=== PATIENT | female | born 1955 | race Caucasian/White ===

== ENCOUNTER 2019-03-14 22:27 | Emergency (ER) | payer BC, MEDICARE ==
[2019-03-14] MEDS ORDERED: Ondansetron 4 MG Tab.DIS PO ONE (22:44)
[2019-03-14] MEDS ORDERED: Iopamidol 755 Mg/ML 100 ML Bottle IVPUSH ONE (23:06)
[2019-03-14] MEDS ORDERED: fentaNYL 100 MCG/2 ML SDV IVPUSH PRN (23:08)
[2019-03-14 23:12] LABS: CHLORIDE,CL 101 mEq/L (98-106); SODIUM,NA 140 mEq/L (136-145)
[2019-03-15] MEDS ORDERED: Lactated Ringers 1,000 ML IV SCH (00:17)
--- NOTE | 2019-03-15 00:19 | EDM.PDOC ---
ED HPI GENERAL MEDICAL PROBLEM - General Chief Complaint: Abdominal Pain Stated Complaint: abdominal pain Time Seen by Provider: 03/14/19 22:55 Source of Information: Reports: Patient History Limitations: Reports: No Limitations - History of Present Illness INITIAL COMMENTS - FREE TEXT/NARRATIVE: Patient presents to ER with complaints of abdominal pain. States had pain off and on yesterday but has become much more intense over the last 3 hours. States pain very intense, constant, "feels like labor pains". Questions if related to "eating blueberries". Has nausea with emesis while here in ER. No fevers. Had a BM prior to arrival in the ER, normal, no blood noted. Past surgical history includes cholecystectomy. Previous colonoscopies have been normal. Rates pain at a 10/10. Onset: Gradual Duration: Hour(s):, Constant, Getting Worse Location: Reports: Abdomen Quality: Reports: Sharp Severity: Severe Improves with: Reports: None Associated Symptoms: Reports: Nausea/Vomiting. Denies: Confusion, Chest Pain, Cough, Fever/Chills, Loss of Appetite, Shortness of Breath, Syncope, Weakness Middle Abdominal Pain Score (Numeric/FACES): 10 - Related Data Allergies Allergy/AdvReac Type Severity Reaction Status Date / Time ciprofloxacin AdvReac Fever Verified 03/14/19 22:30 Home Meds: Home Meds Digoxin 1.5 tab PO DAILY 04/19/16 [History] Norethindrone AC-Eth Estradiol [Jinteli 1 MG-5 MCG] 1 tab PO DAILY 04/19/16 [ History] Quinapril [Accupril] 15 mg PO DAILY 04/19/16 [History] atorvaSTATin Calcium [Atorvastatin Calcium] 10 mg PO DAILY 04/19/16 [History] Aspirin 1 tab PO DAILY 03/14/19 [History] Cholecalciferol (Vitamin D3) [Vitamin D3] 2,000 unit PO DAILY 03/14/19 [History] Cranberry 500 mg PO DAILY 03/14/19 [History] Insulin Glarg,Human.Rec.Analog [Lantus Solostar] 30 units SQ BID 03/14/19 [ History] Liraglutide [Victoza] 1.8 mg SQ DAILY 03/14/19 [History] Magnesium Oxide [Magnesium] 500 mg PO DAILY 03/14/19 [History] Multivitamin [Multivitamins] 1 cap PO DAILY 03/14/19 [History] Past Medical History Cardiovascular History: Reports: Afib, High Cholesterol, Hypertension Other Cardiovascular History: Atrial Flutter Gastrointestinal History: Reports: GERD Endocrine/Metabolic History: Reports: Diabetes, Type II - Past Surgical History GI Surgical History: Reports: Cholecystectomy Female Surgical History: Reports: Section Social & Family History - Family History Family Medical History: Noncontributory - Tobacco Use Smoking Status *Q: Former Smoker Used Tobacco, but Quit: Yes Month/Year Tobacco Last Used: October 2015 - Caffeine Use Caffeine Use: Reports: Coffee - Recreational Drug Use Recreational Drug Use: No ED ROS GENERAL - Review of Systems Review Of Systems: See Below Constitutional: Denies: Fever, Chills, Malaise, Weakness, Decreased Appetite HEENT: Reports: No Symptoms Respiratory: Denies: Shortness of Breath, Cough Cardiovascular: Denies: Chest Pain, Edema, Lightheadedness Endocrine: Denies: Fatigue GI/Abdominal: Reports: Abdominal Pain, Distension, Nausea, Vomiting. Denies: Hematochezia, Melena : Reports: No Symptoms Musculoskeletal: Reports: No Symptoms Skin: Reports: No Symptoms Neurological: Reports: No Symptoms Psychiatric: Reports: No Symptoms ED EXAM, GI/ABD - Physical Exam Exam: See Below Exam Limited By: No Limitations General Appearance: Alert, WD/WN, Mild Distress Ears: Normal External Exam, Normal TMs Nose: Normal Inspection, Normal Mucosa, No Blood Throat/Mouth: Normal Inspection, Normal Oropharynx Head: Normocephalic Neck: Normal Inspection, Supple, Non-Tender Respiratory/Chest: No Respiratory Distress, Lungs Clear, Normal Breath Sounds Cardiovascular: Regular Rate, Rhythm, No Edema GI/Abdominal Exam: Distended, Tender, Abnormal Bowel Sounds Extremities: Normal Inspection, No Pedal Edema Neurological: Alert, Oriented Skin Exam: Warm, Dry Course - Vital Signs Last Recorded V/S: Last Vital Signs Temp 97.8 F 03/14/19 22:28 Pulse 93 03/14/19 22:28 Resp 18 03/14/19 22:28 BP 184/80 H 03/14/19 22:28 Pulse Ox 97 03/14/19 22:28 - Orders/Labs/Meds Orders: Active Orders 24 hr Category Date Time Status Abdomen 2V AP Flat Upright [CR] Stat Exams 03/14/19 22:41 Taken Abdomen Pelvis w Cont [CT] Stat Exams 03/14/19 23:07 Taken INR,PT,PROTHROMBIN TIME [COAG] Stat Lab 03/15/19 00:09 Ordered UA W/MICROSCOPIC [URIN] Stat Lab 03/14/19 23:32 Ordered fentaNYL [Sublimaze] Med 03/14/19 23:08 Active 25 - 50 mcg IVPUSH Q2H PRN Medication Orders Fentanyl (Sublimaze) 25 - 50 mcg IVPUSH Q2H PRN PRN Reason: Pain Last Admin: 03/14/19 23:13 Dose: 50 mcg Labs: Laboratory Tests 03/14/19 03/14/19 Range/Units 22:45 22:45 WBC 17.3 H (5.0-10.0) 10^3/uL RBC 4.77 (4.00-5.50) 10^6/uL Hgb 15.0 (12.0-16.0) g/dL Hct 44.4 (37.0-47.0) % MCV 93.1 (82.0-94.0) fL MCH 31.4 (27.0-32.0) pg MCHC 33.8 (33.0-38.0) g/dL RDW Coeff of Satish 13.2 (11.0-15.0) % Plt Count 313 (150-400) 10^3/uL Neut % (Auto) 55.7 (35-85) % Lymph % (Auto) 36.5 (10-55) % Grainger % (Auto) 6.1 (0-16) % Eos % (Auto) 1.4 (0-5) % Baso % (Auto) 0.3 (0-3) % Neut # (Auto) 9.66 H (1.80-7.00) 10^3/uL Lymph # (Auto) 6.32 H (1.00-4.80) 10^3/uL Grainger # (Auto) 1.06 H (0.00-0.80) 10^3/uL Eos # (Auto) 0.24 (0.00-0.45) 10^3/uL Baso # (Auto) 0.05 10^3/uL Sodium 140 (136-145) mEq/L Potassium 3.6 (3.5-5.0) mEq/L Chloride 101 (98-106) mEq/L Carbon Dioxide 26 (21-32) mmol/L BUN 15 (7-18) mg/dL Creatinine 0.8 (0.6-1.0) mg/dL Est Cr Clr Drug Dosing 60.54 mL/min Estimated GFR (MDRD) > 60 (>=60) mL/min Glucose 154 H (75-99) mg/dL Calcium 10.0 (8.4-10.1) mg/dL Total Bilirubin 0.6 (0.0-1.0) mg/dL AST 28 (15-37) U/L ALT 37 (12-78) U/L Alkaline Phosphatase 42 L (46-116) U/L C-Reactive Protein 0.6 (0.2-0.8) mg/dL Total Protein 8.7 H (6.4-8.2) g/dL Albumin 4.2 (3.4-5.0) g/dL Amylase 70 (25-115) U/L Meds: Medications Generic Name Dose Route Start Last Admin Trade Name Freq PRN Reason Stop Dose Admin Fentanyl 25 - 50 mcg 03/14/19 23:08 03/14/19 23:13 Sublimaze IVPUSH 50 mcg Q2H PRN Administration Pain Discontinued Medications Generic Name Dose Route Start Last Admin Trade Name Freq PRN Reason Stop Dose Admin Iopamidol 100 ml 03/14/19 23:06 03/14/19 23:19 Isovue-370 (76%) IVPUSH 03/14/19 23:07 100 ml ONETIME ONE Administration Ondansetron HCl 4 mg 03/14/19 22:44 03/14/19 22:57 Zofran Odt PO 03/14/19 22:45 4 mg ONETIME ONE Administration - Re-Assessments/Exams Free Text/Narrative Re-Assessment/Exam: 03/15/19 Labs noted, WBC 17. Electrolytes, creatinine negative. Flat and upright shows significant air fluid levels. Proceed with CT scan of abdomen 9054- Report received from radiology, noted cecal volvulus. Contacted Dr. Dhillon at [facility] in [place]. Agreed patient needed surgical consultation/ intervention. Patient informed. Risks and benefits discussed with patient. Risks of transfer include worsening pain/condition, vehicle crash and possible . Benefits of transfer appropriate surgical intervention at higher level of care. Risks of non transfer include lac of surgical coverage/intervention, worsening of condition. Benefits include care closer to home. Patient and agree with transfer. Departure - Departure Time of Disposition: 00:19 Disposition: DC/Tfer to Acute Hospital 02 Condition: Fair Clinical Impression: Volvulus of colon - Discharge Information *PRESCRIPTION DRUG MONITORING PROGRAM REVIEWED*: No *COPY OF PRESCRIPTION DRUG MONITORING REPORT IN PATIENT SO: No Referrals: PCP,None [Primary Care Provider] - Forms: ED Department Discharge Additional Instructions: Transfer to [facility] to Dr. Dhillon. Remain NPO. - My Orders Last 24 Hours: My Active Orders 03/14/19 22:41 Abdomen 2V AP Flat Upright [CR] Stat 03/14/19 23:07 Abdomen Pelvis w Cont [CT] Stat 03/14/19 23:08 fentaNYL [Sublimaze] 25 - 50 mcg IVPUSH Q2H PRN 03/14/19 23:32 UA W/MICROSCOPIC [URIN] Stat 03/15/19 00:09 INR,PT,PROTHROMBIN TIME [COAG] Stat - Assessment/Plan Last 24 Hours: My Active Orders 03/14/19 22:41 Abdomen 2V AP Flat Upright [CR] Stat 03/14/19 23:07 Abdomen Pelvis w Cont [CT] Stat 03/14/19 23:08 fentaNYL [Sublimaze] 25 - 50 mcg IVPUSH Q2H PRN 03/14/19 23:32 UA W/MICROSCOPIC [URIN] Stat 03/15/19 00:09 INR,PT,PROTHROMBIN TIME [COAG] Stat
[2019-03-15] MEDS ORDERED: fentaNYL 100 MCG/2 ML SDV IV ONE (00:21)
[2019-03-15 00:41] VITALS: BP 169/73
== END 2019-03-15 00:56 ==
LOC: CC.ED 22:27
DX: K56.2 Volvulus (principal); I10 Essential (primary) hypertension; I48.91 Unspecified atrial fibrillation; E78.00 Pure hypercholesterolemia, unspecified; K21.9 Gastro-esophageal reflux disease without esophagitis; E11.9 Type 2 diabetes mellitus without complications; Z87.891 Personal history of nicotine dependence; Z79.899 Other long term (current) drug therapy; Z88.1 Allergy status to other antibiotic agents
CPT/HCPCS: 36415; 74019; 74177; 80053; 81001; 82150; 85025; 85610; 86140; 96365; 96375; 96376; 99285-25; A9270-GY; J3010; J7120; Q9967

== ENCOUNTER 2022-06-13 07:35 | Emergency (ER) | payer MEDICARE, BC ==
[2022-06-13 07:50] VITALS: BP 169/73; PULSE 73
[2022-06-13 08:29] LABS: PTT,PARTIAL THROMBOPLSTIN TIME 24.1 SEC (23.2-32.3)
[2022-06-13] MEDS ORDERED: Sodium Chloride 0.9% 10 ML Syringe FLUSH PRN (09:19)
[2022-06-13] MEDS: Sodium Chloride 0.9% 1,000 ML IV ONE (10:07)
[2022-06-13] MEDS: Iopamidol 755 Mg/ML 100 ML Bottle IVPUSH ONE (10:11)
[2022-06-13] MEDS: Lidocaine 5% 700 MG Patch TRDERM ONE (14:15)
== END 2022-06-13 14:19 | disposition home or self-care (01) ==
LOC: CC.ED 07:35
DX: R10.9 Unspecified abdominal pain (principal); I10 Essential (primary) hypertension; E11.9 Type 2 diabetes mellitus without complications; Z88.1 Allergy status to other antibiotic agents; Z79.899 Other long term (current) drug therapy; Z79.4 Long term (current) use of insulin; Z90.49 Acquired absence of other specified parts of digestive tract
CPT/HCPCS: 36415; 74177; 80053; 81001; 83735; 85025; 85610; 85730; 96360; 96361; 99284; 99284-25; A9270-GY; J7030; Q9967

== ENCOUNTER 2023-01-28 20:17 | Emergency (ER) | payer MEDICARE, BC ==
[2023-01-28] MEDS ORDERED: HYDROmorphone 1 MG/ML Syringe IVPUSH ONE (20:33)
[2023-01-28] MEDS ORDERED: Ondansetron 4 MG/2 ML SDV IVPUSH ONE (21:09)
[2023-01-28] MEDS ORDERED: VANCOmycin 1 GM/200 ML 1 GM in Premix Bag 1 BAG IV ONE (22:24)
[2023-01-28] MEDS ORDERED: Iopamidol 755 Mg/ML 100 ML Bottle IVPUSH ONE (22:58)
[2023-01-29] MEDS ORDERED: HYDROmorphone 1 MG/ML Syringe IVPUSH ONE ×4 (00:01→07:44)
[2023-01-29] MEDS ORDERED: Sodium Chloride 0.9% 1,000 ML IV SCH (00:15)
[2023-01-29] MEDS ORDERED: Piperacillin/Tazobactam 3.375 GM in Sodium Chloride 0.9% 100 ML IV ONE (02:07)
[2023-01-29 06:21] VITALS: BP 144/62; PULSE 72
== END 2023-01-29 08:25 ==
LOC: CC.ED 20:17
DX: J90 Pleural effusion, not elsewhere classified (principal); R10.11 Right upper quadrant pain; C22.0 Liver cell carcinoma; E78.00 Pure hypercholesterolemia, unspecified; I12.9 Hypertensive chronic kidney disease with stage 1 through stage 4 chronic kidney disease, or unspecified chronic kidney disease; N18.4 Chronic kidney disease, stage 4 (severe); Z88.0 Allergy status to penicillin; Z88.1 Allergy status to other antibiotic agents; Z79.899 Other long term (current) drug therapy; Z79.4 Long term (current) use of insulin; Z90.49 Acquired absence of other specified parts of digestive tract; Z20.822 Contact with and (suspected) exposure to COVID-19
CPT/HCPCS: 36415; 74178; 80053; 81001; 82947; 83605; 85025; 86140; 87040; 96361; 96365; 96367; 96375; 96376; 99284; 99285-25; J1170; J2405; J2543; J3370; J7030; J7050; Q9967; U0002

== ENCOUNTER 2025-06-28 09:27 | Day surgery (SDC) | payer MEDICARE, BC ==
[2025-06-28] MEDS: Lactated Ringers 1,000 ML IV SCH (09:53)
[2025-06-28] MEDS ORDERED: Midazolam 1 MG/ML 2 ML SDV ONE (09:55)
[2025-06-28] MEDS ORDERED: Flumazenil 0.1 MG/ML 5 ML MDV ONE (09:55)
[2025-06-28] MEDS ORDERED: Propofol 200 MG/20 ML SDV ONE (09:55)
[2025-06-28] MEDS ORDERED: Ketamine 200 MG/20 ML MDV ONE (09:55)
[2025-06-28] MEDS ORDERED: fentaNYL 50 MCG/ML SDV ONE (09:55)
[2025-06-28 11:16] VITALS: BP 115/57; PULSE 53
== END 2025-06-28 11:24 | disposition home or self-care (01) ==
LOC: CC.SDS 09:27
PROVIDERS: ATTEND Family Medicine
DX: Z12.11 Encounter for screening for malignant neoplasm of colon (principal); K62.1 Rectal polyp; R19.5 Other fecal abnormalities; I10 Essential (primary) hypertension; E78.5 Hyperlipidemia, unspecified; Z88.1 Allergy status to other antibiotic agents; Z88.8 Allergy status to other drugs, medicaments and biological substances; Z79.899 Other long term (current) drug therapy
CPT/HCPCS: 00811; 45380; 99100; J2250; J2704; J3010; J3490; J7120; 88305